=== PATIENT | male | born 1995 | race Two or more races ===

== ENCOUNTER 2025-03-07 13:46 | Emergency (ER) | payer MEDICAID ==
[~2025-03-07] VITALS: Ht 177.8 cm; Wt 74.8 kg
[2025-03-07] MEDS ORDERED: KETOROLAC TROMETHAMINE 15 MG/ML VIAL ONE (14:30)
[2025-03-07] MEDS: KETOROLAC TROMETHAMINE 15 MG/ML VIAL IM ONE (14:35)
[2025-03-07] MEDS ORDERED: IBUP-1490 PO (15:18)
[2025-03-07 15:42] VITALS: BP 108/77; TEMP 98.1; O2SAT 98
== END 2025-03-07 15:43 | disposition home or self-care (01) ==
LOC: ER 13:50
DX: M25.572 Pain in left ankle and joints of left foot (principal)
CPT/HCPCS: 99283; 96372; 73610; J1885